=== PATIENT | female | born 1980 | race Two or more races ===

== ENCOUNTER 2016-10-03 02:01 | Emergency (ER) | payer OTHER ==
[~2016-10-03] VITALS: Ht 161.3 cm; Wt 97.5 kg
--- NOTE | ~2016-10-03 | CR72 ---
[facility] A Service of [facility] & [facility] RADIOLOGY TEXT RESULTS PATIENT: ИРИНА HARRELL LOCATION: [facility] : [birth year] UNIT #: [id number] AGE: [address]: Jacinto Mckeon MD SEX: F ORDER DR: [id number] [facility] [address] [place], [place] [address] [id number] E MR#: [id number] #: [id number] NAME: ИРИНА HARRELL : 1980 SEX: F STUDY DATE/TIME: 10/03/2016 04:46 UNIT: [facility] ROOM: STUDY DESCRIPTION: CR Chest Single View Portable Attending Physician: Jacinto Mckeon M.D. Ordering Physician: Ed Xavier Chu M.D. Primary Care Physician: Primary Care Physician No MEDICAL IMAGING REPORT This report is preliminary unless electronic signature is present EXAM Portable chest, 10/03 04:56 INDICATIONS Shortness of air, chest pain and cough that started today. FINDINGS A single AP portable view of the chest shows both lungs to be clear. The heart is normal in size. The mediastinal contour is normal. No significant bone abnormalities are seen. IMPRESSION Normal portable chest. Dictated by... Rory Hartley Jr., M.D. THIS IS AN ELECTRONICALLY VERIFIED REPORT Rory Hartley Jr., M.D. at 10/03/2016 9:24 PM GENARO/aleksandra TD: 10/03/2016 16:08 JOB #: [id number] MEDICAL IMAGING REPORT Page 1 of 1 COPY
--- NOTE | ~2016-10-03 | CT16 ---
[facility] A Service of [facility] & [facility] RADIOLOGY TEXT RESULTS PATIENT: ИРИНА HARRELL LOCATION: [facility] : 80 UNIT #: [id number] AGE: [address]: Jacinto Roberto MD SEX: F ORDER DR: [id number] [facility] [address] [place], [place] [address] [id number] E MR#: [id number] Acc #: [id number] NAME: ИРИНА HARRELL : 1980 SEX: F STUDY DATE/TIME: 10/03/2016 9:24 UNIT: [facility] ROOM: STUDY DESCRIPTION: CT Angio Chest for PE Attending Physician: Jacinto Roberto M.D. Ordering Physician: Jacinto Roberto M.D. Primary Care Physician: Primary Care Physician No MEDICAL IMAGING REPORT This report is preliminary unless electronic signature is present EXAM CT angio chest for PE HISTORY Chest pain for 6 hours, history of asthma, heart palpitations and panic attacks. COMMENT CT of the chest performed in the axial plane during the intravenous administration of 100 mL of Isovue-370. This was followed by 3-D coronal MIP reconstructed images for the purpose of CT pulmonary angiography. This CT exam was performed with one or more of the following radiation dose reduction techniques: Automatic exposure control, adjustment of mA and/or kV according to patient size, and iterative reconstruction. Comparison is an earlier chest x-ray. The lung volumes are low. This results in somewhat suboptimal assessment of the peripheral lower lung pulmonary arterial system. Allowing for this, there is no convincing evidence for pulmonary embolism. No central pulmonary embolus is seen. There is no evidence for pericardial effusion or thoracic aortic dissection. There is a small, dependent right pleural effusion. There is no pneumothorax. Heart is mildly enlarged and, in addition to the crowding of the pulmonary markings due to the low lung volumes, I suspect there is some pulmonary vascular congestion. There is some patchy alveolar disease bilaterally with a central predominance. Please correlate for clinical evidence of mild congestive failure. A small amount of dependent atelectasis is also present. Distal esophagus is mildly patulous. There may be some fatty infiltration of the liver on this contrast-enhanced study. Correlate clinically. No hilar or mediastinal lymphadenopathy. Increased number of axillary nodes with a mildly enlarged node on the left at about 1.2 cm short-axis dimension. This is probably reactive but if the patient has not had a recent mammogram, this is recommended. [facility] A Service of [facility] & [facility] RADIOLOGY TEXT RESULTS PATIENT: ИРИНА HARRELL LOCATION: [facility] : 80 UNIT #: [id number] AGE: [address]: Jacinto Roberto MD SEX: F ORDER DR: IMPRESSION 1. The lung volumes are low and there is some associated crowding of the pulmonary vasculature and markings. Allowing for this, there is no convincing evidence for pulmonary embolism. There is no evidence for thoracic aortic dissection or pericardial effusion. Cardiac silhouette is enlarged and there is a small right pleural effusion dependently. I am concerned that there is pulmonary vascular redistribution and some patchy airspace disease with central predominance as well as a small amount of atelectasis. Findings are most concerning for a component of mild congestive failure. Please correlate further clinically. There is no pneumothorax. 2. Probably fatty infiltration of the liver. 3. Mildly enlarged left axillary lymph node is nonspecific, probably reactive but if the patient has not been evaluated with a mammogram, this is recommended. Dictated by... Syeda Michaels M.D. THIS IS AN ELECTRONICALLY VERIFIED REPORT Syeda Michaels M.D. at 10/04/2016 7:54 AM NANCY/aleksandra TD: 10/03/2016 17:47 JOB #: [id number] MEDICAL IMAGING REPORT Page 1 of 1 COPY
--- NOTE | ~2016-10-03 | EKG ---
PATIENT: ИРИНА HARRELL UNIT #: [id number] Ventricular Rate: 97 BPM Atrial Rate: 97 BPM P-R Interval: 156 ms QRS Duration: 82 ms Q-T Interval: 346 ms QTC Calculation(Bezet): 439 ms P [place]bury: 44 degrees Calculated R [place]: 59 degrees Calculated T [place]: 23 degrees Diagnosis Line: Normal sinus rhythm Diagnosis Line: Possible Left atrial enlargement Diagnosis Line: Nonspecific T wave abnormality Diagnosis Line: Abnormal ECG Diagnosis Line: No previous ECGs available Diagnosis Line: Confirmed by BERNARDINO DAVIS MD ([id number]) on Diagnosis Line: 10/04/2016 8:17:24 PM INTERPRETING MD: ANDREE
[2016-10-03 05:17] LABS: BASOPHIL# 0.1 X10e3 (0-0.3); BASOPHIL% 0.9 % (0-2.5); EOSINOPHIL# 0.3 X10e3 (0-0.7); EOSINOPHIL% 2.8 % (0.0-7.0); HEMATOCRIT 35.6 % (35.0-45.0); HEMOGLOBIN 11.2 gm/dL (12.0-16.0); LYMPHOCYTE# 3.8 X10e3 (1.0-3.5); LYMPHOCYTE% 32.6 % (17.0-45.0); MEAN CELL VOLUME 82.2 FL (83-96); MEAN CORPUSCULAR HEMOGLOBIN 25.8 PG (28-34); MEAN CORPUSCULAR HGB CONC 31.4 g/dL (30-36); MEAN PLATELET VOLUME 7.8 FL (6.5-11.5); MONOCYTE% 8.3 % (3.0-12.0); NEUTROPHIL# 6.5 X10e3 (1.5-7.1); NEUTROPHIL% 55.4 % (40-75); PLATELET COUNT 415 X10e3 (140-420); RED BLOOD COUNT 4.33 X10e (3.90-5.30); RED CELL DISTRIBUTION WIDTH 16.7 % (11.0-15.5); WHITE BLOOD COUNT 11.7 X10e3 (4.0-10.5)
[2016-10-03 05:19] LABS: DIFF IND NO
[2016-10-03 05:26] LABS: POC - CKMB 1.9 ng/mL (0.0-7.9); POC - TROPONIN <0.05 ng/mL (<=0.05)
[2016-10-03 05:26] LABS: PARTIAL THROMBOPLASTIN TIME 26.8 SECONDS (23.5-31.3); PROTHROMBIN TIME (PATIENT) 10.7 SECONDS (10.0-11.7)
[2016-10-03 05:43] LABS: ALBUMIN SERUM 3.5 g/dL (3.5-5.0); ALKALINE PHOSPHATASE 80 U/L (32-92); ALT (SGPT) 50 U/L (10-40); AST (SGOT) 60 U/L (10-42); BILIRUBIN,TOTAL 0.6 mg/dL (0.2-2.0); BLOOD UREA NITROGEN 9 mg/dL (9-23); CALCIUM SERUM 9.1 mg/dL (8.4-10.2); CARBON DIOXIDE 25 mmol/L (22-31); CHLORIDE 106 mmol/L (100-111); GLOM FILT RATE Estimated 72.5 mL/min (>60); GLUCOSE FASTING 110 mg/dL (70-110); POTASSIUM 3.3 mmol/L (3.5-5.1); PROTEIN TOTAL SERUM 8.2 g/dL (6.0-8.3); SODIUM 139 mmol/L (135-145)
[2016-10-03 05:45] LABS: BILIRUBIN, DIRECT <0.1 mg/dL (0.0-0.2); BILIRUBIN,INDIRECT 0.5 mg/dL (0.0-0.9)
[2016-10-03 06:47] LABS: POC - CKMB 1.1 ng/mL (0.0-7.9); POC - TROPONIN <0.05 ng/mL (<=0.05)
== END 2016-10-03 10:13 | disposition home or self-care (01) ==
LOC: CED 02:01
PROVIDERS: Emergency Medicine
DX: R07.9 Chest pain, unspecified (principal); K21.9 Gastro-esophageal reflux disease without esophagitis
CPT/HCPCS: 36415; 71010; 71275; 80048; 80076; 82553; 84484; 84703; 85025; 85379; 85610; 85730; 93005; 96374; 99285; Q9967